=== PATIENT | female | born 1950 | race Caucasian/White ===

== ENCOUNTER 2021-03-31 10:43 | Outpatient (CLI) | payer MEDICARE ==
[~2021-03-31 10:43] MED LIST: REGADENOSON 0.4 MG/5 ML SYRINGE ONE
== END 2021-03-31 23:59 | disposition home or self-care (01) ==
LOC: CVU 10:43 → CFH 23:59
PROVIDERS: ATTEND Internal Medicine Cardiovascular Disease
DX: I08.0 Rheumatic disorders of both mitral and aortic valves (principal); I10 Essential (primary) hypertension; I48.0 Paroxysmal atrial fibrillation
CPT/HCPCS: 78452; 93017; 93306; A9502; J2785